=== PATIENT | female | born 2000 | race Caucasian/White ===

== ENCOUNTER 2025-08-31 13:35 | Emergency (ER) | payer BC, SELFPAY ==
[2025-08-31 13:48] VITALS: BP 115/67; PULSE 69; RESP 18; TEMP 36.3; O2SAT 100
[2025-08-31] MEDS: TETANUS,DIPHTHERIA,AC PERTUSSIS ADULT (0.5 ML) BOOSTRIX IM (14:13)
[2025-08-31] MEDS: LIDOCAINE 1% LOCAL INJ 2 ML AMPUL 6 ML INFILTRATE (14:27)
--- NOTE | 2025-08-31 15:08 | ED.GENADULT ---
HPI - General Adult General Chief complaint: Wound/Laceration Stated complaint: finger cut Patient presents for evaluation of an injury to the left hand that occurred just prior to arrival. She indicates she sustained lacerations to the 3rd, 4th and 5th digits of the left hand using a top trimmer. She states that her pain level is less than 1 on a scale of 1-10. She is right hand dominant. She is not on blood thinners. She is not diabetic. Date of last tetanus unknown. Source: patient Mode of arrival: ambulatory Limitations: no limitations Related Data Home Medications ?Medication ?Instructions ?Recorded ?Confirmed ?Last Taken ?Type methylphenidate HCl 36 mg 36 mg PO QAM 11/14/19 Unknown History tablet,extended release 24 hr sertraline 100 mg tablet 100 mg PO DAILY 11/14/19 Unknown History etonogestrel 68 mg subdermal 1 implant subdermal ONCE 08/31/25 Unknown History implant (Nexplanon) Allergies Allergy/AdvReac Type Severity Reaction Status Date / Time Penicillins Allergy Mild Hives Verified 08/31/25 14:22 cephalexin Allergy Unknown Hives Verified 08/31/25 13:53 Review of Systems Review of Systems: CONSTITUTIONAL: Denies fever, chills, or sweats. EYES: Denies visual changes, redness, or discharge. ENT: Denies rhinorrhea, congestion, sore throat, or otalgia. CARDIOVASCULAR: Denies chest pain, palpitations, or edema. RESPIRATORY: Denies cough or dyspnea. GASTROINTESTINAL: Denies abdominal pain, nausea, vomiting, or diarrhea. GENITOURINARY: Denies dysuria or hematuria. SKIN: reports wounds to the 3rd, 4th, and 5th digit of the left hand. MUSCULOSKELETAL: Reports pain in the 3rd, 4th and 5th digits of the left hand NEUROLOGIC: Denies headache, numbness, dizziness, or weakness. PSYCHIATRIC: Denies anxiety or depression. [facility] Past Medical History Medical History History of ADHD History of anxiety Surgical History Surgical History No pertinent past surgical history Family History Family History Mother Family history non-contributory Social History Social History Smoking status: Never smoker Substance use: never Occupation/Education: student Gender identity (if verbalized by the patient): Female Sexual Orientation (if Verbalized by the Patient): Straight or Heterosexual Exam Narrative: GENERAL: Well-appearing, well-nourished, and in no acute distress. HEAD: Normocephalic, atraumatic. EYES: PERRLA and EOMI. ENT: Nares clear, no rhinorrhea or epistaxis. Mucous membranes moist. Oropharynx without tonsillar hypertrophy exudate or other lesions. Bilateral TMs pearly parker nonbulging NECK: Supple. No adenopathy or masses. No carotid bruits or JVD CHEST: Clear to auscultation. No respiratory distress. No wheezes rales or rhonchi HEART: Regular rate and rhythm. No murmur heard. Normal peripheral pulses. ABDOMEN: Soft, nontender, nondistended, normal active bowel sounds. EXTREMITIES: Normal range of motion. No edema. SKIN: there is a puncture wound to the palmar aspect of the 3rd digit of the left hand. Wound bed pin with scant amount of dried sanguinous drainage present. There is a puncture wound to the palmar aspect of the 4th digit of the left hand. Wound bed is pink with scant amount of dried sanguinous drainage present. There is a 1 cm laceration to the palmar aspect of the 5th digit of the left hand and flap formation. NEURO: No focal deficits. Alert and oriented x3. PSYCH: Normal mood and affect. Course Course Emergency Course: This is a 25-year-old female who presented for evaluation of an injury to the left hand. Puncture wounds to the 3rd and 4th digits were cleaned thoroughly. The laceration of the 5th digit of the left hand was closed with Dermabond after thorough irrigation. Sutures were not utilized as the integrity of the flap was not strong. she was provided with a finger splint. Will discharge with doxycycline. She should follow-up with primary care go to the emergency department if she has signs of infection or intractable pain. Patient in agreement with plan of care. Level of Care: Express Care Visit Vital Signs Vital signs: Vital Signs Temperature 36.3 C L 08/31/25 13:48 Pulse Rate 69 08/31/25 13:48 Respiratory Rate 18 08/31/25 13:48 Blood Pressure 115/67 08/31/25 13:48 Pulse Oximetry 100 08/31/25 13:48 Oxygen Delivery Room Air 08/31/25 13:48 Temperature 36.3 C L 08/31/25 13:48 Pulse Rate 69 08/31/25 13:48 Respiratory Rate 18 08/31/25 13:48 Blood Pressure 115/67 08/31/25 13:48 Pulse Oximetry 100 08/31/25 13:48 Oxygen Delivery Room Air 08/31/25 13:48 Procedures Orthopedic Splinting/Casting Injury #1: Splinting/Casting Date: 08/31/25 Splinting/Casting Time: 15:17 Side: left Upper Extremity Injury Location: finger Upper Extremity Immobilizer: finger (other) Splint: prefabricated Medical Decision Making Vital Signs Vital Signs: Vital Signs Temperature 36.3 C L 08/31/25 13:48 Pulse Rate 69 08/31/25 13:48 Respiratory Rate 18 08/31/25 13:48 Blood Pressure 115/67 08/31/25 13:48 Pulse Oximetry 100 08/31/25 13:48 Oxygen Delivery Room Air 08/31/25 13:48 Temperature 36.3 C L 08/31/25 13:48 Pulse Rate 69 08/31/25 13:48 Respiratory Rate 18 08/31/25 13:48 Blood Pressure 115/67 08/31/25 13:48 Pulse Oximetry 100 08/31/25 13:48 Oxygen Delivery Room Air 08/31/25 13:48 Discharge Plan Discharge Clinical Impression: Finger laceration Patient Disposition: Home Condition: Stable Instructions: Antibiotic Form, Finger Laceration (ED) Patient Language: Syriac Prescriptions: New doxycycline hyclate 100 mg capsule 100 mg PO BID Qty: 20 0RF No Action Nexplanon 68 mg implant 1 implant subdermal ONCE Rx Instructions: as a single dose sertraline 100 mg Tablet 100 mg PO DAILY methylphenidate HCl 36 mg Tablet Extended Release 24hr 36 mg PO QAM Follow-up/Referrals: Tom,Michaela [Other] Stand Alone Forms: Work/School Release IP Time of Disposition: 15:03
== END 2025-08-31 15:11 | disposition home or self-care (01) ==
PROVIDERS: Emergency Provider Nurse Practitioner
DX: S61.233A Puncture wound without foreign body of left middle finger without damage to nail, initial encounter (principal); S61.235A Puncture wound without foreign body of left ring finger without damage to nail, initial encounter; W29.3XXA Contact with powered garden and outdoor hand tools and machinery, initial encounter; S61.217A Laceration without foreign body of left little finger without damage to nail, initial encounter; Z23 Encounter for immunization; F90.9 Attention-deficit hyperactivity disorder, unspecified type; F41.9 Anxiety disorder, unspecified
CPT/HCPCS: 12001; 90471; 90715; 99213; G0463; J2003